=== PATIENT | female | born 1970 | race Caucasian/White ===

== ENCOUNTER 2024-11-06 16:54 | Inpatient (IN) | payer BC, MEDICAID ==
[~2024-11-06] VITALS: Ht 165.1 cm; Wt 63.1 kg
[~2024-11-06 16:54] MED LIST: BIOT5CAP2 PO; CLIN-214 PO; IBUP-2697 PO; LACT1CAP26 PO
[2024-11-06] MEDS: ketorolac trometh 30MG/ML vial 30 MG/ML VIAL IV ONE (19:32)
[2024-11-06 19:42] LABS: BASOPHILS # (AUTO) 0.1 X10'3 (0-0.2); BASOPHILS % (AUTO) 1.2 % (0-1); EOSINOPHILS # (AUTO) 0.1 X10'3 (0-0.9); EOSINOPHILS % (AUTO) 1.6 % (0-6); HEMATOCRIT 39.7 % (35.0-45.0); HEMOGLOBIN 13.2 g/dl (12.0-16.0); LYMPHOCYTES # (AUTO) 1.6 X10'3 (1.1-4.8); LYMPHOCYTES % (AUTO) 23.7 % (21-51); MEAN CORPUSCULAR HEMOGLOBIN 30.6 PG (27.0-31.0); MEAN CORPUSCULAR HGB CONC 33.3 g/dL (33.0-36.5); MEAN CORPUSCULAR VOLUME 92.1 FL (78-98); MEAN PLATELET VOLUME 9.3 FL (7.4-10.4); MONOCYTES # (AUTO) 0.5 X10'3 (0-0.9); MONOCYTES % (AUTO) 7.5 % (2-12); NEUTROPHILS # (AUTO) 4.5 X10'3 (1.8-7.7); PLATELET COUNT 292 X10'3 (140-440); RED BLOOD COUNT 4.31 X10'6 (4.20-5.60); RED CELL DISTRIBUTION WIDTH 17.8 % (11.5-14.5); WHITE BLOOD COUNT 6.9 X10'3 (4.5-11.0)
[2024-11-06 19:55] LABS: ALANINE AMINOTRANSFERASE 26 U/L (12-78); ALBUMIN 3.6 G/DL (3.4-5.0); ALBUMIN/GLOBULIN RATIO 1.1 (1.1-1.5); ALKALINE PHOSPHATASE 69 IU/L (46-116); ANION GAP 9 (8-16); ASPARTATE AMINO TRANSFERASE 17 U/L (10-37); BILIRUBIN,TOTAL 0.9 MG/DL (0.1-1.0); BLOOD UREA NITROGEN 9 MG/DL (7-18); BUN/CREATININE RATIO 11.4 (10.0-20.0); CALCIUM 9.3 MG/DL (8.5-10.1); CHLORIDE 107 MMOL/L (99-107); CREATINE KINASE 46 U/L (26-192); CREATININE 0.79 MG/DL (0.40-0.90); GLUCOSE 109 MG/DL (70-104); POTASSIUM 3.8 MMOL/L (3.5-5.1); SODIUM 143 MMOL/L (135-145); TOTAL CARBON DIOXIDE 27.2 MMOL/L (24-32); eCRCL 72 ML/MIN; eGFR 75 ML/MIN
[2024-11-06] MEDS ORDERED: iohexol 300mg/ml 100ml inj. ONE (23:21)
[2024-11-06 23:24] LABS: C-REACTIVE PROTEIN < 0.05 MG/DL (0.0-0.5)
[2024-11-06] MEDS: diazepam inj 5 MG/ML inj. IV ONE (23:54)
[2024-11-07] MEDS ORDERED: NO HOME MEDS (00:47)
[2024-11-07 01:18] LABS: THYROID STIMULATING HORMONE 0.84 ulU/ml (0.34-4.50)
[2024-11-07] MEDS ORDERED: potassium Cl 20 mEq SR tablet PO PRN ×2 (01:20)
[2024-11-07] MEDS ORDERED: mag hydrox/Alum hydrox/simeth 30ml oral suspension PO PRN (01:20)
[2024-11-07] MEDS ORDERED: acetaminophen 325mg tablet PO PRN ×2 (01:20)
[2024-11-07] MEDS ORDERED: HYDROmorphone/PF 0.2 MG/ML SYRINGE IV PRN (01:20)
[2024-11-07] MEDS ORDERED: morphine 2 MG/ML inj. syringe IV PRN (01:20)
[2024-11-07] MEDS ORDERED: magnesium sulf-water 2g/50mL 50 ML IV PRN (01:20)
[2024-11-07] MEDS ORDERED: ondansetron/PF 4mg/2ml inj IV PRN (01:20)
[2024-11-07] MEDS ORDERED: magnesium sulf-water 4G/100mL 100 ML IV PRN (01:20)
[2024-11-07] MEDS ORDERED: magnesium Cl slow-release 64mg tablet PO PRN (01:20)
[2024-11-07] MEDS ORDERED: potassium Cl 40MEQ/1/2NS 520ml 520 ML IV PRN (01:20)
[2024-11-07] MEDS: HYDROcodone/acetaminophen 5mg/325mg tablet PO PRN (01:51)
[2024-11-07] MEDS: cyanocobalamin 1,000 mcg/ml inj IM ONE (01:52)
[2024-11-07 03:27] LABS: MAGNESIUM 2.1 MG/DL (1.5-2.4); POTASSIUM 3.8 MMOL/L (3.5-5.1)
[2024-11-07 03:30] VITALS: BP 131/69; PULSE 62; RESP 20; TEMP 97.7; O2SAT 99
[2024-11-07 06:00] VITALS: BP 133/77; PULSE 74; RESP 18; TEMP 97.7; O2SAT 100
[2024-11-07 08:00] VITALS: RESP 18; O2SAT 100
[2024-11-07] MEDS: K and/or MAG REPLACEMENT MC SCH (08:00)
[2024-11-07] MEDS: docusate sod 100mg capsule PO SCH (09:04)
[2024-11-07] MEDS: heparin, porcine 5000 units/ml vial SQ SCH (09:07)
[2024-11-07 10:00] VITALS: BP 128/71; PULSE 53; RESP 15; TEMP 97.1; O2SAT 97
[2024-11-07] MEDS: gabapentin 300mg capsule PO SCH (13:00)
[2024-11-07 18:30] VITALS: BP 128/72; PULSE 59; RESP 14; TEMP 97.8; O2SAT 99
[2024-11-07 22:00] VITALS: BP 118/72; PULSE 60; RESP 17; TEMP 97.8; O2SAT 98
[2024-11-08 02:01] LABS: BILIRUBIN,URINE NEGATIVE (Neg); CLARITY,URINE CLEAR (Clear); COLOR,URINE YELLOW (Yellow); GLUCOSE, URINE NEGATIVE (Neg); KETONES,URINE TRACE mg/dl (Neg); LEUKOCYTE ESTERASE ,URINE TRACE (Neg); NITRITES, URINE POSITIVE (Neg); OCCULT BLOOD,URINE MODERATE (Neg); PROTEIN,URINE NEGATIVE (Neg)
[2024-11-08 02:06] LABS: URINE AMPHETAMINE SCREEN NEGATIVE (Neg); URINE BARBITUATE SCREEN NEGATIVE (Neg); URINE BENZODIAZEPINES SCREEN POSITIVE (Neg); URINE CANNABINOID SCREEN POSITIVE (Neg); URINE COCAINE SCREEN NEGATIVE (Neg); URINE METHADONE SCREEN POSITIVE (Neg); URINE OPIATE SCREEN POSITIVE (Neg); URINE PHENCYCLIDINE SCREEN NEGATIVE (Neg)
[2024-11-08 02:07] LABS: UA COLLECTION TYPE FOLEY CATH
[2024-11-08 02:09] LABS: BACTERIA,URINE 2+ /HPF (Neg); SQUAMOUS EPITHELIAL CELL,UR NONE SEEN /LPF (FEW)
[2024-11-08] MEDS: HYDROmorphone inj. 0.5 MG/0.5 ML DISP.SYRIN IV PRN (04:09)
[2024-11-08 06:00] VITALS: BP 125/70; PULSE 59; RESP 16; TEMP 98; O2SAT 96
[2024-11-08 06:55] LABS: BASOPHILS % (AUTO) 0.8 % (0-1); EOSINOPHILS # (AUTO) 0.1 X10'3 (0-0.9); EOSINOPHILS % (AUTO) 1.3 % (0-6); HEMATOCRIT 37.6 % (35.0-45.0); HEMOGLOBIN 12.6 g/dl (12.0-16.0); LYMPHOCYTES # (AUTO) 1.2 X10'3 (1.1-4.8); LYMPHOCYTES % (AUTO) 26.4 % (21-51); MEAN CORPUSCULAR HEMOGLOBIN 30.7 PG (27.0-31.0); MEAN CORPUSCULAR HGB CONC 33.5 g/dL (33.0-36.5); MEAN CORPUSCULAR VOLUME 91.7 FL (78-98); MEAN PLATELET VOLUME 9.5 FL (7.4-10.4); MONOCYTES # (AUTO) 0.3 X10'3 (0-0.9); MONOCYTES % (AUTO) 6.4 % (2-12); NEUTROPHILS % (AUTO) 65.1 % (42-75); PLATELET COUNT 271 X10'3 (140-440); RED CELL DISTRIBUTION WIDTH 17.4 % (11.5-14.5); WHITE BLOOD COUNT 4.5 X10'3 (4.5-11.0)
[2024-11-08 07:16] LABS: ALANINE AMINOTRANSFERASE 25 U/L (12-78); ALBUMIN 3.3 G/DL (3.4-5.0); ALBUMIN/GLOBULIN RATIO 1.1 (1.1-1.5); ALKALINE PHOSPHATASE 64 IU/L (46-116); ANION GAP 8 (8-16); ASPARTATE AMINO TRANSFERASE 17 U/L (10-37); BILIRUBIN,TOTAL 0.6 MG/DL (0.1-1.0); BLOOD UREA NITROGEN 9 MG/DL (7-18); CALCIUM 9.1 MG/DL (8.5-10.1); CHLORIDE 109 MMOL/L (99-107); GLUCOSE 88 MG/DL (70-104); POTASSIUM 3.8 MMOL/L (3.5-5.1); SODIUM 144 MMOL/L (135-145); TOTAL CARBON DIOXIDE 27.1 MMOL/L (24-32); TOTAL PROTEIN 6.4 G/DL (6.4-8.2); eCRCL 94 ML/MIN; eGFR > 90 ML/MIN
[2024-11-08 08:00] VITALS: RESP 16; O2SAT 96
[2024-11-08] MEDS: magnesium hydroxide 30ml (MOM) UD suspension PO PRN (08:11)
[2024-11-08 10:00] VITALS: BP 128/73; PULSE 72; RESP 20; TEMP 98.1; O2SAT 97
[2024-11-08] MEDS: normal saline 1000ml 1,000 ML IV SCH (12:20)
[2024-11-08] MEDS: CefTRIAXone/D5W-Rocephin 1gm 50 ML IV SCH (14:06)
[2024-11-08 18:00] VITALS: BP 130/76; PULSE 70; RESP 16; TEMP 96.9; O2SAT 94
[2024-11-08] MEDS: pregabalin 75mg capsule PO SCH (20:08)
[2024-11-08] MEDS: nortriptyline 10mg capsule PO SCH (20:08)
[2024-11-08 22:00] VITALS: BP 112/60; PULSE 60; RESP 16; TEMP 97.7; O2SAT 99
[2024-11-09 06:00] VITALS: BP 109/76; PULSE 61; RESP 14; TEMP 97.9; O2SAT 97
[2024-11-09 06:18] LABS: BASOPHILS % (AUTO) 0.8 % (0-1); EOSINOPHILS # (AUTO) 0.1 X10'3 (0-0.9); EOSINOPHILS % (AUTO) 1.8 % (0-6); HEMATOCRIT 37.2 % (35.0-45.0); HEMOGLOBIN 12.4 g/dl (12.0-16.0); LYMPHOCYTES # (AUTO) 1.2 X10'3 (1.1-4.8); LYMPHOCYTES % (AUTO) 29.7 % (21-51); MEAN CORPUSCULAR HEMOGLOBIN 31.1 PG (27.0-31.0); MEAN CORPUSCULAR HGB CONC 33.3 g/dL (33.0-36.5); MEAN CORPUSCULAR VOLUME 93.6 FL (78-98); MEAN PLATELET VOLUME 9.8 FL (7.4-10.4); MONOCYTES # (AUTO) 0.3 X10'3 (0-0.9); MONOCYTES % (AUTO) 7.6 % (2-12); NEUTROPHILS # (AUTO) 2.5 X10'3 (1.8-7.7); NEUTROPHILS % (AUTO) 60.1 % (42-75); PLATELET COUNT 235 X10'3 (140-440); RED BLOOD COUNT 3.98 X10'6 (4.20-5.60); RED CELL DISTRIBUTION WIDTH 17.9 % (11.5-14.5); WHITE BLOOD COUNT 4.2 X10'3 (4.5-11.0)
[2024-11-09 06:50] LABS: ALANINE AMINOTRANSFERASE 29 U/L (12-78); ALKALINE PHOSPHATASE 56 IU/L (46-116); ANION GAP 7 (8-16); ASPARTATE AMINO TRANSFERASE 26 U/L (10-37); BILIRUBIN,TOTAL 0.3 MG/DL (0.1-1.0); BLOOD UREA NITROGEN 8 MG/DL (7-18); BUN/CREATININE RATIO 10.4 (10.0-20.0); CALCIUM 9.1 MG/DL (8.5-10.1); CHLORIDE 112 MMOL/L (99-107); CREATININE 0.77 MG/DL (0.40-0.90); GLUCOSE 108 MG/DL (70-104); MAGNESIUM 2.2 MG/DL (1.5-2.4); POTASSIUM 4.1 MMOL/L (3.5-5.1); SODIUM 147 MMOL/L (135-145); TOTAL CARBON DIOXIDE 27.7 MMOL/L (24-32); TOTAL PROTEIN 6.1 G/DL (6.4-8.2); eCRCL 73 ML/MIN; eGFR 78 ML/MIN
[2024-11-09] MEDS: sodium chloride 0.45% 1,000 ML IV SCH (08:25)
[2024-11-09 10:00] VITALS: BP 117/67; PULSE 57; RESP 16; TEMP 97; O2SAT 97
[2024-11-09 18:00] VITALS: BP 134/83; PULSE 59; RESP 18; TEMP 97; O2SAT 100
[2024-11-09 20:00] VITALS: RESP 15; O2SAT 99
[2024-11-09 22:00] VITALS: BP 129/73; PULSE 50; RESP 14; TEMP 97.7; O2SAT 100
[2024-11-10 06:00] VITALS: BP 132/75; PULSE 54; RESP 15; TEMP 98.2; O2SAT 99
[2024-11-10 06:02] LABS: EOSINOPHILS # (AUTO) 0.1 X10'3 (0-0.9); HEMATOCRIT 38.2 % (35.0-45.0); HEMOGLOBIN 12.6 g/dl (12.0-16.0); LYMPHOCYTES # (AUTO) 1.2 X10'3 (1.1-4.8); LYMPHOCYTES % (AUTO) 28.1 % (21-51); MEAN CORPUSCULAR HEMOGLOBIN 30.6 PG (27.0-31.0); MEAN CORPUSCULAR VOLUME 92.6 FL (78-98); MEAN PLATELET VOLUME 9.4 FL (7.4-10.4); MONOCYTES # (AUTO) 0.3 X10'3 (0-0.9); MONOCYTES % (AUTO) 8.1 % (2-12); NEUTROPHILS # (AUTO) 2.5 X10'3 (1.8-7.7); NEUTROPHILS % (AUTO) 59.8 % (42-75); PLATELET COUNT 223 X10'3 (140-440); RED BLOOD COUNT 4.13 X10'6 (4.20-5.60); RED CELL DISTRIBUTION WIDTH 17.9 % (11.5-14.5); WHITE BLOOD COUNT 4.2 X10'3 (4.5-11.0)
[2024-11-10 06:24] LABS: ALANINE AMINOTRANSFERASE 42 U/L (12-78); ALBUMIN 2.9 G/DL (3.4-5.0); ALBUMIN/GLOBULIN RATIO 0.9 (1.1-1.5); ALKALINE PHOSPHATASE 67 IU/L (46-116); ANION GAP 8 (8-16); ASPARTATE AMINO TRANSFERASE 39 U/L (10-37); BILIRUBIN,TOTAL 0.3 MG/DL (0.1-1.0); BLOOD UREA NITROGEN 4 MG/DL (7-18); BUN/CREATININE RATIO 5.5 (10.0-20.0); CALCIUM 8.8 MG/DL (8.5-10.1); CHLORIDE 111 MMOL/L (99-107); CREATININE 0.73 MG/DL (0.40-0.90); GLUCOSE 104 MG/DL (70-104); POTASSIUM 3.8 MMOL/L (3.5-5.1); SODIUM 146 MMOL/L (135-145); TOTAL CARBON DIOXIDE 27.5 MMOL/L (24-32); TOTAL PROTEIN 6.3 G/DL (6.4-8.2); eCRCL 77 ML/MIN; eGFR 82 ML/MIN
[2024-11-10 08:00] VITALS: RESP 16; O2SAT 96
[2024-11-10 10:00] VITALS: BP 111/59; PULSE 69; RESP 14; TEMP 98; O2SAT 96
[2024-11-10] MEDS: vitamin B comp w/Vit. C tab 1 TAB TABLET PO SCH (10:14)
[2024-11-10] MEDS: hydrOXYzine 25 MG tablet PO PRN (11:03)
[2024-11-10] MEDS: cyanocobalamin 500mcg tablet PO SCH (12:14)
[2024-11-10] MEDS ORDERED: bisacodyl 10mg suppository rectal RC PRN (12:25)
[2024-11-10] MEDS: bisacodyl 10mg suppository rectal RC STA (12:53)
[2024-11-10] MEDS: lactulose 20gm/30ml cup PO SCH (13:41)
[2024-11-10] MEDS ORDERED: GADOTERATE MEGLUMINE 7.5 MMOL/15 ML VIAL IV ONE (14:16)
[2024-11-10] MEDS ORDERED: thiamine 100mg tablet PO SCH (20:00)
== END 2024-11-10 16:00 | DRG 73 ==
LOC: ER 16:55 → ED HOLD 11-07 01:21 → ORTHO 4S 11-07 03:29
PROVIDERS: ADMIT Surgery Surgical Critical Care; ATTEND Internal Medicine
PROC: BW211ZZ Computerized Tomography (CT Scan) of Abdomen and Pelvis using Low Osmolar Contrast (ICD-10-PCS; principal; 2024-11-07)
DX: G62.2 Polyneuropathy due to other toxic agents (principal); G82.50 Quadriplegia, unspecified; G61.0 Guillain-Barre syndrome; Z20.822 Contact with and (suspected) exposure to COVID-19; M51.369 Other intervertebral disc degeneration, lumbar region without mention of lumbar back pain or lower extremity pain; M47.816 Spondylosis without myelopathy or radiculopathy, lumbar region; M16.0 Bilateral primary osteoarthritis of hip; K59.00 Constipation, unspecified; F12.90 Cannabis use, unspecified, uncomplicated; F14.90 Cocaine use, unspecified, uncomplicated; F15.90 Other stimulant use, unspecified, uncomplicated; G89.29 Other chronic pain; Z91.81 History of falling; Z88.5 Allergy status to narcotic agent
CPT/HCPCS: 36415; 70553; 71045; 72146; 72148; 74177; 80053; 80305; 81001; 82550; 82607; 83735; 84132; 84443; 85025; 85651; 86140; 87081; 87502; 87503; 87811; 96374; 96375; 97116; 97161; 97530; 99285; G0378; J0696; J1171; J1644; J1885; J3360; J3420; J3490; J7030; Q0177; Q9967

== ENCOUNTER 2025-09-30 13:16 | Emergency (ER) | payer BC, MEDICAID ==
[~2025-09-30] VITALS: Ht 165.1 cm; Wt 63.6 kg
[~2025-09-30 13:16] MED LIST changes: -BIOT5CAP2 PO; -CLIN-214 PO; -IBUP-2697 PO; -LACT1CAP26 PO; +NO HOME MEDS
[2025-09-30] MEDS ORDERED: PER5325T PO (13:54)
[2025-09-30] MEDS ORDERED: GABA-535 PO (13:54)
[2025-09-30] MEDS ORDERED: DULO20CA18 PO (13:54)
[2025-09-30] MEDS ORDERED: PREG20SO PO (13:54)
--- NOTE | 2025-09-30 14:09 | Physician Documentation ---
History of Present Illness ~ Chief Complaint: Shortness of Breath Stated Complaint: ABD PAIN Time Seen by MD: 13:36 Primary Medical Doctor: [facility] Mode of Arrival: POV HPI 55-year-old female presents to the ED with a complaint of shortness of breath and cough for the last 1-2 weeks. States he has a history of developing pneumonia. In addition she is complaining of abdominal pain states that she has a bowel movement 3 times a week in his concurrently taking oxycodone for her hip which needs to be replaced. She states that she has never had abdominal pain like this. Denies having any fevers denies any nausea vomiting. Reports increased shortness a breath with the cough in addition to smoking 1-2 cigarettes a day for the last eight years.denies has any chest pain Day of Onset: Sep 30, 2025 Medication Reconciliation Allergies: Coded Allergies: codeine (Unverified Allergy, Unknown, 09/30/25) Scheduled Azithromycin (Azithromycin), 1 TAB PO UD Duloxetine HCl (Duloxetine HCl), 1 CAP PO DAILY, (Reported) Gabapentin (Gabapentin), 1 CAP PO Q8H, (Reported) Polyethylene Glycol 3350* (Miralax*), 1 PKT PO DAILY Scheduled PRN Oxycodone Hcl/Acetaminophen 5/325 MG* (Percocet 5/325 MG*), 1 TAB PO TID PRN PRN for pain, (Reported) Miscellaneous Medications Pregabalin (Lyrica), 20 MG PO, (Reported) Discontinued Medications Home Med List (No Home Medications), (Reported) Discontinued Reason: patient no longer taking Past Medical History Past Medical History: Chronic Pain, Chronic Back Pain Past Surgical History: noncontributory, other Patient History: FH: alcoholism brother FH: thyroid disease MOTHER sister Alcohol Use: Occasionally Drug Use: marijuana, methamphetamine, cocaine, heroin Lives In: Home Occupation: disabled Review of Systems All Other Systems at this time: Reviewed and Negative ROS As stated above in the HPI, otherwise all systems are reviewed and negative. Physical Exam Vital Signs: Temperature: 97.6, Source: Temporal, Heart Rate: 69, Respiratory Rate: 20, BP: 128/62, Pulse Oximetry: 96, Weight: 63.640 Oxygen Flow Rate: 0 Physical Exam General: Alert, no apparent distress. Respiratory: Lungs clear, no respiratory distress. Chest: No accessory muscle use. Cardiovascular: Regular rate and rhythm, no murmurs. Gastrointestinal: Soft, tender to the lower quadrants via palpation, no distention Extremities: Normal range of motion, no deformity. Neurologic: Oriented x4. Psychiatric: Normal mood and affect. Skin: Normal color, warm and dry. No edema, no ecchymosis. 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 Chest,Single View (09/30/25 13:56) Monitor (09/30/25 13:56) Saline Lock (09/30/25 13:56) Oxygen (09/30/25 13:56) Svn Treatment (09/30/25 ) Ct Abdomen Pelvis (09/30/25 15:41) Completed Orders - CHAS CHEN [employer]IV[employer] OPERATOR Chest,Single View (09/30/25 13:56) Cbc/Diff (09/30/25 13:56) BMP (09/30/25 13:56) PBNP (09/30/25 13:56) Electrocardiogram (09/30/25 13:56) Ipratropium/Albuterol Nebule (Ipratrop/A (09/30/25 14:55) Hs Troponin I W Calculations (09/30/25 15:21) Ct Abdomen Pelvis (09/30/25 15:41) Vital Signs 09/30/25 09/30/25 09/30/25 09/30/25 13:22 13:27 13:54 14:59 Temp 97.6 Pulse 96 69 66 Resp 18 20 20 16 B/P (MAP) 113/69 128/62 (84) 127/70 (89) Pulse Ox 97 96 97 O2 Flow Rate 0 0 09/30/25 09/30/25 09/30/25 15:04 15:11 17:19 Temp 97.4 Pulse 74 83 82 Resp 18 16 20 B/P (MAP) 144/71 Pulse Ox 97 98 94 O2 Delivery Room Air* Room Air* O2 Flow Rate 0 0 FiO2 21 21 Laboratory Tests Test 09/30/25 14:07 White Blood Count 7.4 Red Blood Count 4.72 Hemoglobin 14.0 Hematocrit 42.0 Mean Corpuscular Volume 89.1 Mean Corpuscular Hemoglobin 29.7 Mean Corpuscular Hemoglobin Concent 33.4 Red Cell Distribution Width 14.3 Platelet Count 277 Mean Platelet Volume 8.9 Neutrophils (%) (Auto) 71.7 Lymphocytes (%) (Auto) 16.9 L Monocytes (%) (Auto) 10.0 Eosinophils (%) (Auto) 1.1 Basophils (%) (Auto) 0.3 Neutrophils # (Auto) 5.3 Lymphocytes # (Auto) 1.2 Monocytes # (Auto) 0.7 Eosinophils # (Auto) 0.1 Basophils # (Auto) 0.0 CBC Comment Sodium Level 145 Potassium Level 3.7 Chloride Level 108 H Carbon Dioxide Level 28.5 Anion Gap 9 Blood Urea Nitrogen 7 Creatinine 0.85 Estimated GFR/1.73 m2 69 BUN/Creatinine Ratio 8.2 L Glucose Level 88 Calcium Level 9.0 Troponin I High Sensitivity 6 Pro-B-Type Natriuretic Peptide 56 Albumin 3.3 L Chemistry Comments Medical Decision Making Additional information obtaine: old records Findings Based on patient's laboratory values EKG and chest x-ray per my interpretation I do not see any signs opacities or infiltrate in her chest x-ray. EKG shows no signs of ST-elevation deviation from axis is or any cardiac arrhythmias per my interpretation Auditory values are not showing any evidence of cardiac events or infectious processes. Based on her complaint I am ordering a CT abdominal scan however I do suspect constipation Heart Score: 1 Differential Dx:Considerations: Include: anxiety, asthma, bronchitis, cardiogenic shock, CHF, COPD, dysrhythmia, hypertension, accelerated, hypertension, essential, hypertension, malignant, hyperventilation, hyponatremia, myocardial infarction, panic attack, pneumonia, pneumonitis, pneumothorax, PSVT, pulmonary embolism, respiratory distress, respiratory failure, sinusitis, upper resp. infection, other Departure Disposition: HOME / SELF CARE / HOMELESS Impression: Primary Impression: Chronic obstructive pulmonary disease Additional Impressions: Bronchitis Pneumonia Constipation Referrals: NO PRIMARY CARE PROVIDER (PCP) Prescriptions Polyethylene Glycol 3350* (Miralax*) 1 Packet Packet 1 PKT PO DAILY for constipation, #30 PKT dissolve in water Prov: CHAS CHEN NP 09/30/25 Azithromycin (Azithromycin) 250 Mg Tablet 1 TAB PO UD for 5 Days, #6 TAB 2 the first day followed by 1 for days 2-5 Prov: CHAS CHEN NP 09/30/25 Signature Scribe Signature: 6 Attestation: Scribed for Chas Chen Np by Chas Echeverria NP . 09/30/25 16:01 CHAS CHEN NP Sep 30, 2025 14:09
--- NOTE | 2025-09-30 14:26 | RADIOLOGY REPORT ---
CHEST RADIOGRAPH INDICATION: CP TECHNIQUE: Single frontal view of the chest was obtained COMPARISON: DI CHEST,SINGLE VIEW on DOS: 11/06/24 FINDINGS: Lungs and pleural spaces are clear. Cardiac silhouette and yuridia are within normal limits. Bones and soft tissues demonstrate no significant abnormality. IMPRESSION: No acute disease.
--- NOTE | 2025-09-30 14:35 | ELECTROCARDIOGRAPH REPORT ---
[facility] Test Date: 2025-09-30 Test Time: 14:30:49 Pat Name: JENNIFER ADAME Department: [facility] Patient ID: [id number] Room: Gender: F [employer]: : 1970 Requested By: TRINI CHEN Order Number: [id number] Reading MD: Dr. RAI Paredes Measurements Intervals [place] Rate: 67 P: 83 [place]: 151 QRS: 80 QRSD: 90 T: 88 QT: 392 QTc: 414 Interpretive Statements Sinus rhythm Borderline repolarization abnormality Electronically Signed On 10-01-2025 18:10:[address] RAI Paredes Please click the below link to view image of tracing.
[2025-09-30 14:36] LABS: MEAN PLATELET VOLUME 8.9 FL (7.4-10.4); RED CELL DISTRIBUTION WIDTH 14.3 % (11.5-14.5)
[2025-09-30] MEDS: ipratropium/albuterol 3ml nebule NEB ONE (15:03)
[2025-09-30 15:04] VITALS: PULSE 74; RESP 18; O2SAT 97
[2025-09-30 15:11] VITALS: PULSE 83; RESP 16; O2SAT 98
[2025-09-30 15:12] LABS: CREATININE 0.85 MG/DL (0.40-0.90); PRO BRAIN NATRIURETIC PEPTIDE 56 PG/ML (0-125); TOTAL CARBON DIOXIDE 28.5 MMOL/L (24-32); eCRCL 66 ML/MIN; eGFR 69 ML/MIN
--- NOTE | 2025-09-30 16:50 | RADIOLOGY REPORT ---
EXAM: CT CT ABDOMEN PELVIS History: constipation Comparison Study: CT CT ABDOMEN PELVIS W/ IV CONTRAST on DOS: 11/06/24 TECHNIQUE: Multidetector spiral CT of the abdomen was performed from lung bases to pubic symphysis. Imaging was performed without IV contrast. Axial, coronal and sagittal multiplanar reformats were obtained from the axial data set by the technologist. Radiation Dose : 1. Abdomen/Pelvis: CTDIvol 13.77 mGy, DLP 693.29 mGy*cm. FINDINGS: Evaluation of solid organs is limited due to lack of intravenous contrast use. Lung Bases: Bronchial wall thickening at the lung bases with patchy infectious / inflammatory appearing opacities within both lower lobes. Bilateral breast implants. Liver: The liver is normal in size. No focal lesions. Gallbladder and Biliary Tree: Unremarkable Spleen: Unremarkable Pancreas: The pancreas is grossly normal in appearance. Adrenal Glands: Unremarkable Kidneys: Kidneys are grossly normal without calculi or hydronephrosis. Bladder: Grossly unremarkable for degree of distention. Bowel: The stomach is grossly normal in appearance. Small bowel and colon are normal in caliber and distribution. Normal appendix is visualized in the right lower quadrant without findings of appendicitis. [id number] volume of stool throughout the colon. Ascites: Absent Lymphadenopathy: No mesenteric, retroperitoneal or periportal lymphadenopathy. Abdominal Wall and Mesentery: Unremarkable. Vasculature: The visualized abdominal aorta is normal in size and caliber. Evaluation of abdominal and pelvic vessels is limited due to lack of intravenous contrast. Pelvic Organs: Unremarkable Musculoskeletal: No aggressive focal bony lesions, acute fractures or dislocation. IMPRESSION: Moderate volume of stool within the cecum. Only mild volume of stool elsewhere throughout the colon. Infectious/ inflammatory appearing opacities at both lung bases. Please correlate with any concern for pneumonia or recent aspiration. Radiation optimization: All CT scans at this facility use at least one of these dose optimization techniques: automated exposure control mA and/or kV adjustment per patient size (includes targeted exams where dose is matched to clinical indication) or iterative reconstruction.
[2025-09-30] MEDS ORDERED: AZIT-103 PO (17:09)
[2025-09-30] MEDS ORDERED: POLY17PO10 PO (17:09)
[2025-09-30 17:19] VITALS: BP 144/71; PULSE 82; RESP 20; TEMP 97.4; O2SAT 94
== END 2025-09-30 17:21 | disposition home or self-care (01) ==
LOC: ER 13:17
DX: J44.9 Chronic obstructive pulmonary disease, unspecified (principal); K59.00 Constipation, unspecified; J18.9 Pneumonia, unspecified organism; G89.29 Other chronic pain; F15.90 Other stimulant use, unspecified, uncomplicated; F14.90 Cocaine use, unspecified, uncomplicated; Z88.5 Allergy status to narcotic agent; Z79.899 Other long term (current) drug therapy; Z72.89 Other problems related to lifestyle; Z98.890 Other specified postprocedural states
CPT/HCPCS: 36415; 71045; 74176; 80048; 83880; 84484; 85025; 93005; 94640; 94760; 99285